=== PATIENT | female | born 1945 ===

== ENCOUNTER 2020-12-29 07:51 | Outpatient (CLI) | payer OTHER | END 2020-12-29 07:53 | disposition home or self-care (01) | LOC: NUCLEAR 07:51 | PROVIDERS: ATTEND Internal Medicine Cardiovascular Disease | DX: I20.8 Other forms of angina pectoris (principal); I11.9 Hypertensive heart disease without heart failure; E11.9 Type 2 diabetes mellitus without complications; E78.00 Pure hypercholesterolemia, unspecified | CPT/HCPCS: 78452; 93017; A9500; J1250 ==

== ENCOUNTER 2023-12-18 09:42 | Outpatient (CLI) | payer OTHER | END 2023-12-18 09:46 | disposition home or self-care (01) | LOC: SONOGRAMA 09:42 | PROVIDERS: ATTEND Pathology Anatomic Pathology | DX: D34 Benign neoplasm of thyroid gland (principal); E07.89 Other specified disorders of thyroid; E04.2 Nontoxic multinodular goiter ==